=== PATIENT | female | born 1975 | race Caucasian/White ===

== ENCOUNTER 2018-02-08 15:43 | Emergency (ER) | payer OTHER, MEDICAID ==
[~2018-02-08] VITALS: Ht 172.7 cm; Wt 72.6 kg
[~2018-02-08 15:43] MED LIST: CIPROFLOXACIN500 M1 PO; CLEOCIN HCL150 MG PO; METHADONE; NAPROSYN500 MG PO; NORCO 5-325 TA1 EAC1 PO; NORCO 5-325 TA1 EACH PO; PENICILLIN V P500 MG PO; PERCOCET 5-3251 EACH PO; PREDNISONE 20 M20 MG PO; PREVACID30 M1 PO; PYRIDIUM200 M1 PO; PYRIDIUM200 MG PO; ROBAXIN 750 MG750 M1 PO; SUBOXONE 8 MG-1 EAC1 SL; ULTRAM 50MG TAB50 MG PO; ZOLOFT 50 MG TA50 M1 PO
[2018-02-08] MEDS ORDERED: TRIAMCINOLONE A80 G2 TOP (16:00)
[2018-02-08 16:11] VITALS: BP 116/82
== END 2018-02-08 16:12 | disposition home or self-care (01) ==
LOC: M.ERS 15:43
DX: L25.5 Unspecified contact dermatitis due to plants, except food (principal); F32.9 Major depressive disorder, single episode, unspecified; K21.9 Gastro-esophageal reflux disease without esophagitis; F17.200 Nicotine dependence, unspecified, uncomplicated; Z90.49 Acquired absence of other specified parts of digestive tract; Z98.890 Other specified postprocedural states

== ENCOUNTER 2018-02-12 16:07 | Emergency (ER) | payer OTHER, MEDICAID ==
[~2018-02-12] VITALS: Ht 172.7 cm; Wt 76.2 kg
[~2018-02-12 16:07] MED LIST changes: +TRIAMCINOLONE A80 G2 TOP
[2018-02-12] MEDS ORDERED: HYDROXYZINE HCL25 M2 PO (16:54)
[2018-02-12] MEDS ORDERED: PREDNISONE 10 M10 M1 PO (16:54)
[2018-02-12] MEDS ORDERED: BACTRIM DS TAB1 EACH PO (16:55)
[2018-02-12] MEDS ORDERED: KEFLEX500 M1 PO (16:55)
[2018-02-12 17:04] VITALS: BP 115/80
== END 2018-02-12 17:05 | disposition home or self-care (01) ==
LOC: M.ERS 16:07
DX: L23.7 Allergic contact dermatitis due to plants, except food (principal); L03.113 Cellulitis of right upper limb; K21.9 Gastro-esophageal reflux disease without esophagitis; F32.9 Major depressive disorder, single episode, unspecified; F17.210 Nicotine dependence, cigarettes, uncomplicated; Z90.49 Acquired absence of other specified parts of digestive tract

== ENCOUNTER 2018-05-30 00:14 | Emergency (ER) | payer OTHER, MEDICAID ==
[~2018-05-30] VITALS: Ht 170.2 cm; Wt 74.4 kg
[~2018-05-30 00:14] MED LIST changes: +BACTRIM DS TAB1 EACH PO; +HYDROXYZINE HCL25 M2 PO; +KEFLEX500 M1 PO; +PREDNISONE 10 M10 M1 PO
[2018-05-30 00:41] LABS: ABSOLUTE EOSINOPHILS 0.3 thou/uL (0.0-0.7); ABSOLUTE LYMPHOCYTES 2.6 thou/uL (0.8-5.3); ABSOLUTE MONOCYTES 0.9 thou/uL (0.0-1.2); ABSOLUTE NEUTROPHILS 4.4 thou/uL (1.6-8.1); BASOPHILS 0.3 %; EOSINOPHILS 3.2 %; HEMATOCRIT 44.7 % (37.0-47.0); HEMOGLOBIN 14.9 gm/dL (12.0-15.0); LYMPHOCYTES 32.2 %; MCH 30.7 pg (26.0-34.0); MCHC 33.4 g/dL (28.0-37.0); MCV 91.8 fL (80.0-100.0); MONOCYTES 11.1 %; MPV 7.5 fl. (7.2-11.1); NUCLEATED RBCS 0 /100WBC; PLATELET COUNT* 311 thou/uL (150-400); POLYS 53.2 %; RBC 4.87 mil/uL (4.20-5.00); RDW-CV 13.5 % (10.5-14.5); WBC 8.2 thou/uL (4.0-11.0)
[2018-05-30 00:46] LABS: URINE BILIRUBIN NEGATIVE (Negative); URINE BLOOD 3+ (Negative); URINE CLARITY CLEAR; URINE COLOR DARK YELLOW; URINE GLUCOSE-RANDOM NEGATIVE (Negative); URINE KETONES NEGATIVE (Negative); URINE LEUKOCYTES NEGATIVE (Negative); URINE NITRITE POSITIVE (Negative); URINE PROTEIN TRACE (Negative); URINE SPECIFIC GRAVITY >= 1.030 (1.005-1.030)
[2018-05-30 00:54] LABS: BACTERIA >30 Many /HPF (None Seen); CASTS None Seen /LPF (None Seen); CRYSTALS None Seen /LPF (None Seen); MUCUS 0-3 Light strn/LPF (None Seen); SQUAMOUS 0-3 Few /LPF (0-3); URINE RBC >20 Many /HPF (0-2); URINE WBC 0-5 Rare /HPF (0-5)
[2018-05-30 01:24] LABS: CALCIUM 8.5 mg/dL (8.5-10.1); CREATININE 0.9 mg/dL (0.6-1.3); POTASSIUM 4.3 mmol/L (3.5-5.1)
[2018-05-30 01:29] LABS: ALBUMIN 3.8 g/dL (3.4-5.0); TOTAL BILIRUBIN 0.2 mg/dL (<0.1-1.0); TOTAL PROTEIN 7.4 g/dL (6.4-8.2)
[2018-05-30 04:17] VITALS: BP 126/82
== END 2018-05-30 04:19 | disposition home or self-care (01) ==
LOC: M.ERS 00:14
PROVIDERS: Personal Emergency Response Attendant
DX: N93.8 Other specified abnormal uterine and vaginal bleeding (principal); F32.9 Major depressive disorder, single episode, unspecified; K21.9 Gastro-esophageal reflux disease without esophagitis; Z87.01 Personal history of pneumonia (recurrent); Z90.49 Acquired absence of other specified parts of digestive tract; Z98.890 Other specified postprocedural states